=== PATIENT | male | born 1990 | race Caucasian/White ===

== ENCOUNTER 2021-03-05 10:01 | Emergency (ER) | payer OTHER, SELFPAY ==
--- NOTE | ~2021-03-05 | CT_ITS ---
EXAMINATION: CT orbit BI w con DATE: 03/05/2021 13:16 INDICATION: Pain and swelling at the right eye after being hit with a door. TECHNIQUE: Computed tomography (CT) of the facial bones and maxillofacial region was performed with 1 00 mL Omnipaque-350 intravenous contrast. Coronal reconstructions were obtained. Automated exposure c ontrol and iterative reconstruction technique were employed. The dose-length product was 134.89 mGy-c m. COMPARISON: None. FINDINGS: Mild preseptal soft tissue swelling at the right orbit. No post septal inflammatory intraorbital fat stranding. Bilateral globes appear intact. No maxillofacial fractures. Visualized portions of the mas toid air cells, middle ear cavities and paranasal sinuses are clear. 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 Visualized portions of the brain are otherwise unremarkable. IMPRESSION: 1. Mild preseptal soft tissue swelling. No fracture or intraorbital abnormality. Reviewed, dictated and finalized at location A. PT EDITOR IMPRESSION: 1. Mild preseptal soft tissue swelling. No fracture or intraorbital abnormality .
[2021-03-05 10:06] VITALS: BP 144/100; PULSE 73; RESP 16; TEMP 36.7; O2SAT 99
[2021-03-05 11:36] VITALS: BP 144/101; PULSE 71; RESP 16; O2SAT 100
--- NOTE | 2021-03-05 11:57 | PC.NURSE ---
Pt refused IV for cat scan, stating he does not want the cat scan. EDP notified.
[2021-03-05 12:18] VITALS: BP 148/89; PULSE 74; O2SAT 100
[2021-03-05] MEDS: HYDROcodone/acetaminophen (*CRX) 5-325 MG TABLET 1 TAB PO (12:29)
[2021-03-05 13:08] LABS: Estimated CRCL calculation 141 ml/min; Estimated Glomerular Filt Rate > 60
--- NOTE | 2021-03-05 15:28 | ED.EYEPROB ---
HPI - Eye Problem General Chief complaint: Eye Problems Stated complaint: eye pain, swelling Time Seen by Provider: 03/05/21 11:37 Source: patient and family Mode of arrival: ambulatory Limitations: no limitations History of Present Illness HPI Narrative: 30-year-old with no major medical problems here with complaints of injury to the right eye. Patient states that he was pulling the door out and excellently hit him in the right eye he denies any visual loss. Complains of swelling around the eye. chief complaint: eye pain, eye redness and eye injury Onset (ago): hour(s) (1) Duration: constant Location: right eye Eye Symptoms: redness Place: work Mechanism: direct trauma Severity: moderate If Pain, Quality: aching Associated symptoms: none Related Data Allergies Allergy/AdvReac Type Severity Reaction Status Date / Time No Known Allergies Allergy Verified 03/05/21 12:28 Review of Systems Review of Systems: All systems reviewed & are unremarkable except as noted in HPI and below Constitutional: Constitutional: Reports no additional constitutional complaints Eyes: Eyes: Reports no additional eye complaints ENT: Reports system reviewed and no additional complaints, except as documented Cardiovascular: Cardiovascular: Reports no additional cardiovascular complaints Respiratory: Respiratory: Reports no additional respiratory complaints Gastrointestinal: Gastrointestinal: Reports no additional gastrointestinal complaints Musculoskeletal: Musculoskeletal: Reports no additional musculoskeletal complaints Integumentary/Breasts: Skin/Breast: Reports system reviewed and no additional complaints, except as docu Exam Narrative: GENERAL: Well-appearing, well-nourished, and in no acute distress. HEAD: Normocephalic, atraumatic. EYES: PERRLA and EOMI. right conjunctiva is mildly erythematous, good corneal reflex, no hyphema noted. Fluorescein stain is negative. NECK: Supple. CHEST: Clear to auscultation. No respiratory distress. HEART: Regular rate and rhythm. No murmur heard. Normal peripheral pulses. EXTREMITIES: Normal range of motion. No edema. SKIN: Warm, dry, no rash. NEURO: No focal deficits. Alert and oriented x3. PSYCH: Normal mood and affect. Course Course Emergency Course: There is no fluorescein uptake on the cornea there was no corneal abrasion. Informed him about the CT findings. Advised ice compress and pain medication as needed and follow-up with clinical orthoptist. Vital Signs Vital signs: Vital Signs Temperature 36.7 C 03/05/21 10:06 Pulse Rate 73 03/05/21 10:06 Respiratory Rate 16 03/05/21 10:06 Blood Pressure 144/100 H 03/05/21 10:06 Pulse Oximetry 99 03/05/21 10:06 Temperature 36.7 C 03/05/21 10:06 Pulse Rate 74 03/05/21 12:18 Respiratory Rate 16 03/05/21 11:36 Blood Pressure 148/89 H 03/05/21 12:18 Pulse Oximetry 100 03/05/21 12:18 MDM - Eye Problem Lab Data Result diagrams: 03/05/21 14:05 Labs: Lab Results 03/05/21 Range/Units 14:05 Creatinine 0.80 (0.8-1.5) mg/dL Estim Creat Clear Calc 141 ml/min Estimated GFR > 60 (59 - ) Discharge Plan Discharge Clinical Impression: Contusion of eyeball and orbital tissues, right eye, initial encounter Patient Disposition: Home, Self-Care Condition: Stable Instructions: Antibiotic Form, Contusion in Adults (ED) Additional Instructions: cold compress ,follow with [facility] Prescriptions: New tramadol [Ultram] 50 mg tablet 50 mg PO Q6H PRN (Reason: pain) Qty: 20 RF: 0 Follow-up/Referrals: PHYSICIAN,[employer] [Primary Care Provider] - Time of Disposition: 15:24
== END 2021-03-05 15:49 | disposition home or self-care (01) ==
PROVIDERS: Emergency Provider Family Medicine
DX: S05.11XA Contusion of eyeball and orbital tissues, right eye, initial encounter (principal); W22.8XXA Striking against or struck by other objects, initial encounter
CPT/HCPCS: 70481; 99284; A9270; Q9967